=== PATIENT | female | born 1970 | race African-American/Black ===

== ENCOUNTER 2016-06-18 07:03 | Emergency (ER) | payer BC ==
[~2016-06-18 07:03] MED LIST: AMOXICILLIN500 M1 PO; ANTIVERT PO; BACTRIM DS TABL1 TA1 PO; DIAZEPAM PO; DICLOFENAC PO; FIORICET1 TAB DOB; FLAGYL250 M1 PO; FLEXERIL10 MG PO; FLONASE16 GM; LORTAB 101 TAB 10/5 PO; LOTRIMIN AF12 GM VAG; NAPROXEN PO; NO MEDICATIONS; POLYTRIM EYE DR10 ML OD; ROBITUSSIN A-C S5 ML PO; RONDEC-DM SYRU120 ML PO; SUDAFED30 M1 PO; VALIUM2 MG PO; VOLTAREN50 MG PO; VOLTAREN75 MG PO
== END 2016-06-18 07:31 | disposition home or self-care (01) ==
LOC: SED 07:03
DX: M54.41 Lumbago with sciatica, right side (principal); Z91.040 Latex allergy status
CPT/HCPCS: 96374; 96375; 99284; J1885; J2270; J2405; J2930